=== PATIENT | male | born 1940 | race Caucasian/White ===

== ENCOUNTER 2025-07-31 11:49 | Emergency (ER) | payer OTHER, SELFPAY ==
--- OUTSIDE RECORDS SUMMARY | 2025-06-28 12:40 | XMS_ITS | Encounter Summary ---
[facility] Organization [facility] Address [address] [place] [address] Care Team Providers Care Rock Contractor Name Role Phone Uriel Foster DO Primary Care Provider [phone] Encounter Details Date Type Department Care Team (Latest Contact Info) Description 06/28/2025 1:40 PM CDT [facility] Visit [facility] [address] [place] [address] Encounter for administration of vaccine (Primary Dx) Social History Tobacco Use Types Packs/Day Years Used Date Smoking Tobacco: Never Smokeless Tobacco: Never Alcohol Use Standard Drinks/Week Comments No 0 (1 standard drink = 0.6 oz pur e alcohol) PHQ-2 Answer Date Recorded PHQ-2 Score 1 02/10/2024 AUDIT-C Answer Date Recorded Frequency of Alcohol Consumption Not on file 05/23/2025 Q2: How many drinks containi ng alcohol do you have on a typical day when you are drinking? Patient does not drink Frequency of Binge Drinking Not on file 05/08 Sex and Gender Information Value Date Recorded Sex Assigned at Male 03/12/2021 8:24 AM CDT Legal Sex Male 5:13 AM CDT Gender Identity Male 03/12/2021 8:24 AM CDT Sexual Orientation Bisexual 03/12/2021 8: 24 AM CDT Occupation Industry Job Start Date Job End Date retired Not on file Not on file Not on file documented as of this encounter Plan of Treatment Upcoming Encounters Date Type Department Care Team (Late st Contact Info) Description 03/30/2026 2:00 PM CDT Appointment [facility] Plastic Surgery and Dermatology [place] - Dermatology [address], [address] [place] [phone] Karel Garcia MD [address] [place] [phone] documented as of this encounter Visit Diagnoses Diagnosis Encounter for administration of vaccine- Primary documented in this encounter Care Teams Rock Contractor Relationship Specialty Start Date End Date Uriel Foster DO [address] [address] PCP - General Family Practice 07/08/23 documented as of this encounter
--- OUTSIDE RECORDS SUMMARY | 2025-07-11 11:00 | XMS_ITS | Encounter Summary ---
Author Organization [facility] Address [address] [place] [address] Care Team Providers Care Door Opener Name Role Phone Uriel Foster DO Primary Care Provider [phone] Encounter Details Date Type Department Care Team (Late st Contact Info) Description 07/11/2025 11:00 AM ENT SURGEON Lab Visit [facility] [address] [place] [address] Monitoring for long-term anticoagulant use Social History Tobacco Use Types Packs/Day Years [...] Info) Description 03/30/2026 2:00 PM CDT Appointment [facility] Pl[facility] Surgery and Dermatology [place] - Dermatology [address], [address] [place] [address] Karel Garcia MD [address] [place] [address] documented as of this encounter Procedures Procedure Name Priority Date/Time Associated Diagnosis Comments CREATININE / GFR Routine 07/11/2025 11:0 3 AM ENT SURGEON Monitoring for long-term anticoagulant use COMPLETE BLOOD COUNT-NO DIFF Routine 07/11/2025 11:03 AM ENT SURGEON Monitoring for long-term anticoagulant use documented in this encounter Results * (ABNORMAL) Creatinine / GFR (07/11/2025 11:03 AM ENT SURGEON) Creatinine 0.72(L) 0.73 - 1.18 mg/dL 07/11/2025 7:46 PM ENT SURGEON [facility] GFR, Estimated >60 >60 mL/min/1.7 3m2 07/11/2025 7:46 PM ENT SURGEON [facility] Blood Venipuncture / Unknown 07/11/2025 11:03 AM ENT SURGEON 07/11/2025 11:03 AM ENT SURGEON us Uriel Foster DO LAB_1 Final Result [facility] CLIA: [id number] [address] [place] [address], [facility] * (ABNORMAL) Complete Blood Count-No Diff (07/11/2025 11:03 AM ENT SURGEON) WBC 4.6 3.5 - 10.5 x10(9)/L 07/11/2025 11:08 AM ENT SURGEON [facility] RBC 3.84(L) 4.32 - 5.72 x10(12)/L 07/11/2025 11:08 AM ENT SURGEON [facility] Hemoglobin 12.3(L) 13.5 - 17.5 g/dL 07/11/2025 11:08 AM [facility] HCT 37.6(L) 38.8 - 50.0 % 07/11/2025 11:08 AM [facility] MCV 97.9 80.0 - 100.0 fL 07/11/2025 11:08 AM [facility] MCH 32.0 27.6 - 33.3 pg 07/11/2025 11:08 AM [facility] MCHC 32.7 31.5 - 35.2 g/dL 07/11/2025 11:08 AM [facility] RDW 12.4 11.9 - 15.5 % 07/11/2025 11:08 AM [facility] Platelets 191 150 - 450 x10(9)/L 07/11/2025 11:08 AM [facility] Blood Venipuncture / Unknown 07/11/2025 11:03 AM ENT SURGEON 07/11/2025 11:03 AM ENT SURGEON us Uriel Foster DO LAB_1 Final Result [facility] CLIA: [id number] [address] [place] [address] documented in this encounter Visit Diagnoses Diagnosis Monitoring for long-term anticoagulant use Encounter for long-term (current) use of anticoagulants documented in this encounter Care Teams Door Opener Relationship Specialty Start Date End Date Uriel Foster DO [address] [place] [address] PCP - General Family Practice 07/08/23 documented as of this encounter
--- OUTSIDE RECORDS SUMMARY | 2025-07-31 11:52 | XMS_ITS | Encounter Summary ---
Author Organization [email or web address] Address [address] [place] [address] Care Team Providers Care General Service Officer Name Role Phone Nigel Barraza DO Primary Care Provider [phone] Reason for Visit * Reason Comments Refill ELIQUIS 5 MG tablet [Pharmacy Med Name: ELIQUIS 5MG TABLETS] Encounter Details Date Type Department Care Team (Late st Contact Info) Description 07/28/2025 Refill [facility] [address] [place] [address] Nigel Barraza DO [address] [place], [place] [phone] Refill (ELIQUIS 5 MG tablet [Pharmacy Med Name: ELIQUIS 5MG TABLETS]) Social History Tobacco Use Types Packs/Day Years [...] on file documented as of this encounter Nursing Notes * Jeimy Chunwcomm - 07/28/2025 3:54 AM CST ELIQUIS 5 MG tablet [Pharmacy Med Name: ELIQUIS 5MG TABLETS] Medication started: 01/29/2025 Last ordered by NIGEL BARRAZA: 02/01/2025 (177 days ago) QTY: 180, Refills: 1, Sig: take 1 tablet (5 mg) by mouth two times a day. (changed but equivalent) -> Medication cannot be delegated. Last qualifying visit: 04/20/2025 (with NIGEL BARRAZA) Next scheduled visit: [facility] Embedded Refills, Reference: [id number], 07/28/2025 3:54:26 AM Milton NEWMAN: NÉSTOR Refill Centralized Services - Primary Care ([id number]) BUILDER documented in this encounter Plan of Treatment Upcoming Encounters Date Type Department Care Team (Late st Contact Info) Description 03/30/2026 2:00 PM CDT Appointment [facility] Plastic Surgery and Dermatology [place] - Dermatology [address], [address] [place] [address] Karel Garcia MD [address] [place] [address] [phone] documented as of this encounter Visit Diagnoses Diagnosis Acute pulmonary embolism without acute cor pulmonale, unspecified pulmonary embolism type (HRC) Acute deep vein thrombosis (DVT) of right popliteal vein (HRC) documented in this encounter Care Teams General Service Officer Relationship Specialty Start Date End Date Nigel Barraza DO [address] [place] [address] PCP - General Family Practice 07/08/23 documented as of this encounter
--- OUTSIDE RECORDS SUMMARY | 2025-07-31 11:52 | XMS_ITS | Encounter Summary ---
Author Organization [facility] Address [address] [place] [address] Care Team Providers Care Agricultural Education Instructor Name Role Phone Uriel Foster DO Primary Care Provider [phone] Encounter Details Date Type Department Care Team (Late st Contact Info) Description 05/03/2025 Results Follow-Up [facility] [address] [place], [place] [phone] Uriel Foster DO [address] [place], [place] [phone] Social History Tobacco Use Types Packs/Day Years [...] on file documented as of this encounter Functional Status documented as of this encounter Plan of Treatment Upcoming Encounters Date Type Department Care Team (Late st Contact Info) Description 03/30/2026 2:00 PM CDT Appointment [facility] Plastic Surgery and Dermatology [place] - Dermatology [address], [address] [place] [address] Karel Garcia MD [address] [place] [address] documented as of this encounter Visit Diagnoses Not on filedocumented in this encounter Care Teams Agricultural Education Instructor Relationship Specialty Start Date End Date Uriel Foster DO [address] [place] [address] PCP - General Family Practice 07/08/23 documented as of this encounter
--- OUTSIDE RECORDS SUMMARY | 2025-07-31 11:52 | XMS_ITS | Encounter Summary ---
Author Organization [facility] Address [address] [place] [address] Care Team Providers Care Mail Order Biller Name Role Phone Uriel Foster DO Primary Care Provider [phone] Reason for Visit * Reason Comments Anticoagulation: DOAC Encounter Details Date Type Department Care Team (Latest Contact Info) Description 07/25/2025 Direct Oral Anticoagulation [facility] [id number] [address] [place] [phone] Uriel Foster DO [address] [place] [address] Acute deep vein thrombosis (DVT) of right popliteal vein (HRC) (Primary Dx); Pulmonary embolism, unspecified chronicity, unspecified pulmonary embolism type, unspecified whether acute cor pulmonale present (HRC) Social History Tobacco Use Types Packs/Day Years [...] on file documented as of this encounter Progress Notes * Tangela Sharma RN - 07/25/2025 12:33 PM CST Uriel Foster DO ANTICOAGULATION MANAGEMENT - Patient's Anticoagulation target end date is/was 07/25/2025 . Please select an option below: OK for patient to stop their anticoagulation medication Apixaban/Eliquis . Please have patient schedule a follow-up appointment to discuss ongoing anticoagulation medication. Patient should continue on anticoagulation medication with a new specified Target End Date of (provide specific date for new Target End Date). Patient should remain on anticoagulation medication indefinitely. Please advise and route to ANTICOAGULATION [facility] and RN will update Anticoagulation Episode and the patient. NICAL SUPPORT AGENT * Uriel Foster DO - 07/25/2025 12:33 PM CST I agree with the proposed anticoagulation plan of care--option 4. Uriel Foster DO [facility] NICAL SUPPORT AGENT documented in this encounter Plan of Treatment Upcoming Encounters Date Type Department Care Team (Late st Contact Info) Description 03/30/2026 2:00 PM CDT Appointment [facility] Plastic Surgery and Dermatology [place] - Dermatology [address], [address] [place] [address] Karel Garcia MD [address] [place] [address] Scheduled Orders Name Type Priority Associated Diagnoses Orde r Schedule AST Lab Routine Acute deep vein thrombosis (DVT) of right popliteal vein (HRC) Pulmonary embolism, unspecified chronicity, unspecified pulmonary embolism type, unspecified whether acute cor pulmonale present (HRC) Expected: 12/20/2025 (Approximate), Expires: 03/20/2026 Creatinine / GFR Lab Routine Acute deep vein thrombosis (DVT) of right popliteal vein (HRC) Pulmonary embolism, unspecified chronicity, unspecified pulmonary embolism type, unspecified whether acute cor pulmonale present (HRC) Expected: 12/20/2025 (Approximate), Expires: 03/20/2026 Hemoglobin, Blood Lab Routine Acute deep vein thrombosis (DVT) of right popliteal vein (HRC) Pulmonary embolism, unspecified chronicity, unspecified pulmonary embolism type, unspecified whether acute cor pulmonale present (HRC) Expected: 12/20/2025 (Approximate), Expires: 03/20/2026 Platelets Lab Routine Acute deep vein thrombosis (DVT) of right popliteal vein (HRC) Pulmonary embolism, unspecified chronicity, unspecified pulmonary embolism type, unspecified whether acute cor pulmonale present (HRC) Expected: 12/20/2025 (Approximate), Expires: 03/20/2026 documented as of this encounter Visit Diagnoses Diagnosis Acute deep vein thrombosis (DVT) of right popliteal vein (HRC)- Primary Pulmonary embolism, unspecified chronicity, unspecified pulmonary embolism type, unspecified whether acute cor pulmonale present (HRC) documented in this encounter Care Teams Mail Order Biller Relationship Specialty Start Date End Date Uriel Foster DO [address] [place] [address] PCP - General Family Practice 07/08/23 documented as of this encounter
--- OUTSIDE RECORDS SUMMARY | 2025-07-31 11:52 | XMS_ITS | Encounter Summary ---
Author Organization [facility] Address [address] [place] [address] Care Team Providers Care Reheater Helper Name Role Phone Uriel Foster DO Primary Care Provider [phone] Encounter Details Date Type Department Care Team (Late st Contact Info) Description 07/12/2025 Results Follow-Up [facility] [address] [place], [place] [phone] Uriel Foster DO [address] [place], [place] [phone] Social History Tobacco Use Types Packs/Day Years [...] Info) Description 03/30/2026 2:00 PM CDT Appointment [facility] Plastic Surgery and Dermatology [place] - Dermatology [address], [address] [place] [address] Karel Garcia MD [address] [place] [address] documented as of this encounter Visit Diagnoses Not on filedocumented in this encounter Care Teams Reheater Helper Relationship Specialty Start Date End Date Uriel Foster DO [address] [place] [address] PCP - General Family Practice 07/08/23 documented as of this encounter
--- OUTSIDE RECORDS SUMMARY | 2025-07-31 11:53 | XMS_ITS | Encounter Summary ---
Author Organization [facility] Address [address] [place] [address] Care Team Providers Care Business Systems Manager Name Role Phone Cristian Uriel J DO Primary Care Provider [phone] Encounter Details Date Type Department Care Team (Latest Contact Info) Description 10/14/1994 Orders Only Yung Webb MD Social History Tobacco Use Types Packs/Day Years Used Date Smoking Tobacco: Never Assessed Sex and Gender Information Value Date Recorded Sex Assigned at Male 03/12/2021 8:24 AM CDT Legal Sex Male 5:13 AM CDT Gender Identity Male 03/12/2021 8:24 AM CDT Sexual Orientation Bisexual 03/12/2021 8: 24 AM CDT documented as of this encounter Plan of Treatment Upcoming Encounters Date Type Department Care Team (Late st Contact Info) Description 03/30/2026 2:00 PM CDT Appointment [facility] Plastic Surgery and Dermatology [place] - Dermatology [address], [address] [place] [address] Karel Garcia MD [address] [place] [address] [place] [address] documented as of this encounter Visit Diagnoses Not on filedocumented in this encounter Additional Health Concerns Infection Onset Date Last Indicated Resolved Time R/O COVID19 08/21/2022 08/20/2022 08/21/2022 5:58 PM 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
--- OUTSIDE RECORDS SUMMARY | 2025-07-31 11:53 | XMS_ITS | Encounter Summary ---
Author Organization [facility] Address [address] [place] [address] Care Team Providers Care Web Site Designer Name Role Phone FosterUriel DO Primary Care Provider [phone] Encounter Details Date Type Department Care Team (Latest Contact Info) Description 10/27/1994 Orders Only Stephanie Maurice Social History Tobacco Use Types Packs/Day Years [...] [facility]erm[facility] [place] - Dermatology [address], [address] [place] [address] Karel Garcia MD [address] [place] [address] [place] [address] documented as of this encounter Visit Diagnoses Not on filedocumented in this encounter Additional Health Concerns Infection Onset Date Last Indicated Resolved Time R/O COVID19 08/21/2022 08/20/2022 08/21/2022 5:58 PM 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
--- OUTSIDE RECORDS SUMMARY | 2025-07-31 11:53 | XMS_ITS | Clinical Summary ---
Author Organization [facility] Address [address] [place] [address] Care Team Providers Care Hydraulic Technician Name Role Phone Uriel Foster DO Primary Care Provider [phone] Source Comments You are receiving this document as you are listed as the primary care provider,follow-up provider, or the patient has been referred to you for consultation.This is in compliance with the Medicare andMedicaid EHR Incentive Program,which states Providers who transition their patient to another setting of careor provider of care or refers their patient to another provider of care shouldprovide summary care record for each transition of care or referral. Mfuse Allergies Active Allergy Reactions Criticality Noted Date Comments Cyclobenzaprine Hives High 11/17/2011 Pseudoephedrine Other, see comments 07/07/2023 Affects urination due to enlarged prostate Medications Cyanocobalamin (VITAMIN B-12) 1000 MCGIndications: Vitamin B 12 deficiency (HRC) Take one tablet daily 90 Tablet 1 07/12/20 24 Active FLUoxetine (PROZAC) 40 MG capsuleIndicati ons:Cognitive disorder,Depres junaid, unspecified depression type Take 1 Capsule (40 mg) by mouth daily. For depression 90 Capsule 3 11/10/19 25 026 Active carvedilol (COREG) 3.125 MG tabletIndicatio ns:Hypertension , unspecified type (HRC) TAKE 1 TABLET(3.125 MG) BY MOUTH TWICE DAILY WITH MEALS FOR BLOOD PRESSURE 180 Tablet 3 01/06/20 25 Active donepezil (ARICEPT) 10 MG tabletIndicatio ns:Mild late onset Alzheimer's dementia without behavioral disturbance, psychotic disturbance, mood disturbance, or anxiety (HRC) Take 10 mg po qam with breakfast beginning once the 5 mg course of therapy has been completed 90 Tablet 3 01/14/20 25 026 Active tamsulosin 0.4 MG CAPS capsuleIndicati ons:BPH with obstruction/low er urinary tract symptoms Take 1 Capsule (0.4 mg) by mouth daily. 90 Capsule 3 02/02/20 25 Active valsartan (DIOVAN) 80 MG tabletIndicatio ns:HTN, goal below 130/80 (HRC) Take 1 Tablet (80 mg) by mouth daily. to lower blood pressure 90 Tablet 3 02/09/20 25 026 Active potassium chloride (K-HUSEYIN) 20 MEQ packetIndicatio ns:Hypokalemia Take 20 mEq by mouth daily. 90 Each 3 04/21/20 25 Active apixaban (ELIQUIS) 5 MG tabletIndicatio ns:Acute pulmonary embolism without acute cor pulmonale, unspecified pulmonary embolism type (HRC),Acute deep vein thrombosis (DVT) of right popliteal vein (HRC) TAKE 1 TABLET(5 MG) BY MOUTH TWICE DAILY 180 Tablet 3 07/28/20 25 Active apixaban (ELIQUIS) 5 MG tabletIndicatio ns:Acute pulmonary embolism without acute cor pulmonale, unspecified pulmonary embolism type (HRC),Acute deep vein thrombosis (DVT) of right popliteal vein (HRC) Take 1 Tablet (5 mg) by mouth two times a day. 180 Tablet 1 02/02/20 25 025 Discontinued Active Problems Problem Noted Date Diagnosed Date CAREPLAN: ANTICOAGULATION DOAC 07/26/2025 Overview (07/26/2025): Indefinite use due to unprovoked DVT and PE 01/2025 with lung nodule suspicious for lung cancer. CAREPLAN: ADVANCE DIRECTIVES/CODE STATUS 025 Neuropathy 05/31/2025 Monitoring for long-term anticoagulant use 06/02 /2025 Pulmonary embolism, unspecif ied chronicity, unspecified pulmonary embolism type, unspecified whether acute cor pulmonale present 02/02/2025 Chronic rhinitis 02/02/2025 Acute pulmonary embolism without acute cor pulmo nale 02/01/2025 Overview (02/01/2025): 01/20/2025 [place] Acute deep vein thrombosis (DVT) of right poplit eal vein 02/01/2025 Overview (02/01/2025): 01/21/2025 [place] Cognitive disorder 11/09/2024 Normocytic anemia 09/15/2024 Major depressive disorder, single episode, moder ate 09/15/2024 Post-void dribbling 01/13/2024 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 Lymphedema 12/14/2023 Depression 12/14/2023 Urge incontinence 09/10/2023 Dementia 09/10/2023 Leg edema 05/01/2023 Prediabetes 05/01/2023 Major depressive disorder, single episode, mild 03/12/2023 H/O nonmelanoma skin cancer 12/30/2022 Overview (12/30/2022): -BCC right upper back status post ED&C 03/27 -SCCIS right forehead status post Mohs 09/27 -multiple other nonmelanoma skin cancers Lung nodule 10/06/2022 Overview (10/06/2022): Seen 09/29 Due for follow up 3-6 mo PVC (premature ventricular contraction) 09/23/19 23 Coronary artery disease invo lving cabazon coronary artery of cabazon heart 03/28/2021 Overview (03/29/2021): Added automatically from request for surgery [id number] Sinus bradycardia 04/10/2019 Overview (05/19/2019): updated 05/19/2019. At least 2 episodes of sudden-onset weakness; unclear if related to HR. Saw cardiology in 05/2019 and declined further testing. Neuropathy of both feet 03/02/2019 Paroxysmal supraventricular tachycardia 03/02/20 19 Overview (03/02/2019): updated 03/02/2019. Required adenosine in 2013. HTN, goal below 140/90 11/24/2018 Cold hands and feet without peripheral vascular disease 11/24/2018 Osteoarthritis, hip, bilateral 02/16/2014 Venous (peripheral) insufficiency 03/21/2013 BPH with obstruction/lower urinary tract symptom s 11/17/2011 Resolved Problems Problem Noted Date Diagnosed Date Resolved Date Varicose veins of leg with pain 03/31/2013 04/10/2019 Dependent edema 06/30/2012 03/01/2019 Pubic bone pain 11/17/2011 04/30/2021 Encounters Date Type Department Care Team Description 07/28/2025 Refill [facility] [address] [place] [address] Uriel Foster DO Refill (ELIQUIS 5 MG tablet [Pharmacy Med Name: ELIQUIS 5MG TABLETS]) 07/25/2025 Direct Oral Anticoagulation [facility] [id number] [place] [address] [phone] Uriel Foster DO Acute deep vein thrombosis (DVT) of right popliteal vein (HRC) (Primary Dx); Pulmonary embolism, unspecified chronicity, unspecified pulmonary embolism type, unspecified whether acute cor pulmonale present (HRC) 07/12/2025 Results Follow-Up [facility] [place] [address] [place] [address] Uriel Foster DO 07/11/2025 11:00 AM PRODUCTION SUPPORT SPECIALIST Lab Visit [address] [address] Monitoring for long-term anticoagulant use 07/11/2025 Telephone [facility] [address] [place] [phone] Uriel Foster DO TEST,PATIENT REQUESTING (Expected date change) 06/28/2025 1:40 PM CDT Nursing Visit [facility] [address] [place] [address] Encounter for administration of vaccine (Primary Dx) 06/04/2025 Notes/Orders [address] [place] [address] Uriel Foster DO Alzheimer's disease, unspecified (CODE) (HRC) (Primary Dx); Dementia in other diseases classified elsewhere, unspecified severity, without behavioral disturbance, psychotic disturbance, mood disturbance, and anxiety (HRC); Polyneuropathy, unspecified; Other specified anxiety disorders (HRC); Athscl heart disease of cabazon coronary artery w/o ang pctrs (HRC) 06/02/2025 Telephone [place] [address] [place] [address] Uriel Foster DO ORDERS 05/31/2025 11:15 AM CDT Office Visit Neurology at [address] [address] Rodrigo Yo MD Neuropathy (Primary Dx) 05/23/2025 10:00 AM CDT Phone Visit [facility] [address] [place] [address] Razia Bunn, PharmD Polypharmacy (Primary Dx) 05/03/2025 Results Follow-Up [place] [address] [address] [place] [address] Uriel Foster DO 05/02/2025 1:00 PM CDT Lab Visit [facility] [address] [place] [address] Hypokalemia from Last 3 Months Immunizations Immunization Administration Dates Next Due Flu Vac (3+ yrs) 08/09/2009, 8,07/21/2007,2005,07/11/2005,06/28/2003,06/06/2003,1 ,07/27/2000,07/10/1999 H1n1 Miv Sanofi 3+ Yr (Injected) 09/06/2009 Influenza IIV3 (Trivalent) F philip Highdose, 65+ Yrs ([id number]) 08/18/2024,05/27/2024,06/24/2019,2017,07/09/2017,05/15/2016,05/25/2015,0 06/05/2014,05/27/2013,05/12/2012, 011,06/24/2010 Influenza IIV4 (Quadrivalent ) Fluad, 65+ Yrs 05/18/2021,06/04/2020 Influenza IIV4 (Quadrivalent ) Fluzone, 65+ Yrs 05/17/2023,06/30/2022 Influenza aIIV3 65+ Years (Fluad) 06/28/2025 Moderna COVID-19 12+ (Spikevax) 08/18/2024,05/27,07/03/2023 PCV13 (Prevnar) 11/24/2018 PPSV23 (Pneumovax) 06/19/2021 Pfizer Bivalent 12+ 05/01/2023,06/30/2022 Pfizer COVID-19 12+ (Comirnaty) 06/28/2025 Pfizer Monovalent 12+ 12/25/2021 Pfizer Monovalent 12+ Purple Top 06/21/2021,10/09,10/08/2020 RSV Arexvy 05/17/2023 TB Skin Test - Inpt (PPD) 04/07/2021(), Td 02/24/1995 Td (7+ yrs) 12/22/2005 Tdap 09/14/2018 Varicella 07/18/1997(Deferred: Immune by Maximo hogan) Zoster (Zostavax) 04/23/2011 Zoster RZV (Shingrix) 06/28/2020,11/24/2018 Family History Medical History Relation Name Comments Cataract Mother Macular Degeneration Mother in her 90s Glaucoma Negative Family History Relation Name Status Comments Mother Social History Tobacco Use Types Packs/Day Years Used Date Smoking Tobacco: Never Smokeless Tobacco: Never Tobacco Cessation:Counseling Given: No Alcohol Use Standard Drinks/Week Comments No 0 [...] file Not on file Not on file Last Filed Vital Signs Vital Sign Reading Time Taken Comments Blood Pressure 124/53 04/20/2025 1:48 PM CDT Pulse 53 04/20/2025 1:48 PM CDT Temperature 36.8 C (98.3 F) 03/06/2025 6:56 AM CDT Respiratory Rate 18 04/14/2025 2:01 PM CDT Oxygen Saturation 100% 04/14/2025 2:01 PM CDT Inhaled Oxygen Concentration - - Weight 88 kg (194 lb) 04/20/2025 1:06 PM CDT Height 172.7 cm (5' 8) 03/06/2025 6:51 AM CDT Body Mass Index 29.5 03/06/2025 6:51 AM CDT Plan of Treatment Upcoming Encounters Date Type Department Care Team (Late st Contact Info) Description 03/30/2026 2:00 PM CDT Appointment [facility] [place] - Dermatology [address], [address] [place] [address] Karel Garcia MD [address] [place] [address] Health Maintenance Due Date Last Done Comments Medicare Annual Wellness Visit 09/14/2025 09/14/2024, 09/09/2023, 09/23/2022, Additional history exists COVID-19 Vaccine ( season) 2025 06/28/2025, 08/18/2024, 05/27/2024, Additional history exists Prediabetes: HGBA1C 04/20/2026 04/20/2025, 03/30/2024, 05/01/2023, Additional history exists MTM Targeted 05/23/2026 05/23/2025, 05/23/2025 DTaP/Tdap/Td Vaccine (2 - Tdap) 09/14/2028 09/14/2018, 12/22/2005, 02/24/1995 Zoster/Shingles Vaccine Completed 06/28/20, 11/24/2018, 04/23/2011 Pneumococcal Vaccine 50+ Yrs Completed 06/19/2021, 11/24/2018 RSV Vaccine Completed 05/17/2023 Influenza Vaccine Completed 06/28/2025, , 05/27/2024, Additional history exists HepA Vaccine Aged Out No longer eligi ble based on patient's age to complete this topic HepB Vaccine Aged Out No longer eligi ble based on patient's age to complete this topic Hib Vaccine Aged Out No longer eligi ble based on patient's age to complete this topic MCV4 Vaccine Aged Out No longer eligi ble based on patient's age to complete this topic Meningococcal B Vaccine Aged Out No l onger eligible based on patient's age to complete this topic Procedures Procedure Name Priority Date/Time Associated Diagnosis Comments CREATININE / GFR Routine 07/11/2025 11:0 3 AM PRODUCTION SUPPORT SPECIALIST Monitoring for long-term anticoagulant use COMPLETE BLOOD COUNT-NO DIFF Routine 07/11/2025 11:03 AM PRODUCTION SUPPORT SPECIALIST Monitoring for long-term anticoagulant use POTASSIUM Routine 05/02/2025 12:48 PM CDT Hypokalemia HGB A1C Routine 04/20/2025 1:56 PM CDT Prediabetes from Last 3 Months or Most Recently Relevant to Health Maintenance Results * (ABNORMAL) Creatinine / GFR (07/11/2025 11:03 AM PRODUCTION SUPPORT SPECIALIST) Creatinine 0.72(L) 0.73 - 1.18 mg/dL 07/11/2025 7:46 PM PRODUCTION SUPPORT SPECIALIST [facility] GFR, Estimated >60 >60 mL/min/1.7 3m2 07/11/2025 7:46 PM [facility] Blood Venipuncture / Unknown 07/11/2025 11:03 AM PRODUCTION SUPPORT SPECIALIST 07/11/2025 11:03 AM PRODUCTION SUPPORT SPECIALIST us Uriel Foster DO LAB_1 Final Result Performing Organization Address City/[facility]/ZIP Co de Phone Number [facility] CLIA: [id number] [place] [address] * (ABNORMAL) Complete Blood Count-No Diff (07/11/2025 11:03 AM PRODUCTION SUPPORT SPECIALIST) [facility] WBC 4.6 3.5 - 10.5 x10(9)/L 07/11/2025 11:08 AM [facility] RBC 3.84(L) 4.32 - 5.72 x10(12)/L 07/11/2025 11:08 AM [facility] Hemoglobin 12.3(L) 13.5 - 17.5 g/dL 07/11/2025 11:08 AM [facility] HCT 37.6(L) 38.8 - 50.0 % 07/11/2025 11:08 AM [facility] MCV 97.9 80.0 - 100.0 fL 07/11/2025 11:08 AM [facility] MCH 32.0 27.6 - 33.3 pg 07/11/2025 11:08 AM [facility] MCHC 32.7 31.5 - 35.2 g/dL 07/11/2025 11:08 AM [facility] RDW 12.4 11.9 - 15.5 % 07/11/2025 11:08 AM [facility] Platelets 191 150 - 450 x10(9)/L 07/11/2025 11:08 AM [facility] Blood Venipuncture / Unknown 07/11/2025 11:03 AM PRODUCTION SUPPORT SPECIALIST 07/11/2025 11:03 AM PRODUCTION SUPPORT SPECIALIST us Uriel Foster DO LAB_1 Final Result Performing Organization Address City/[facility]/ZIP Co de Phone Number [facility] CLIA: [id number] [place] [address] * Potassium (05/02/2025 12:48 PM CDT) Potassium 4.1 3.5 - 5.1 mmol/L 05/02/2025 6:15 PM CDT [facility] Blood Venipuncture / Unknown 05/02/2025 12:48 PM CDT 05/02/2025 12:48 PM CDT us Uriel Foster DO LAB_1 Final Result [facility] CLIA: [id number] [address] [place] [address] * (ABNORMAL) Hgb A1C (04/20/2025 1:56 PM CDT) Hemoglobin A1C 5.7(H) <=5.6 % 04/20/2025 7:03 PM CDT [facility] Estimated Average Glucose (Calc) 117 < 117 mg/dL 04/20/2025 7:03 PM CDT [facility] Comment:Estimated average gl ucose (eAG) converts A1c into glucose units (mg/dL) and estimates average glucose over the past approximately 3 months. The eAG reference interval (<117 mg/dL) corresponds to an A1c of <5.7%. Blood Venipuncture / Unknown 04/20/2025 1:56 PM CDT 04/20/2025 1:56 PM CDT Narrative [facility] - 04/20/2025 7:03 PM CDT For patients not previously diagnosed with diabetes: 5.7-6.4%: Increased risk for diabetes 6.5% and greater: Diagnostic for diabetes For patients diagnosed with diabetes: <8.0%: Goal of therapy for ages 18-75 Clinicians may recommend a higher or lower goal for specific individuals. us Uriel Foster DO LAB_1 Final Result [facility] CLIA: [id number] [id number] [place] [address] from Last 3 Months or Most Recently Relevant to Health Maintenance Insurance HP MEDICARE ADVANTAGE HP MEDICARE ADVANTAGE HP MEDICARE ADVANTAGE MEDICARE ADVANTAGE Advance Directives Documents on File Type Date Recorded Patient Bottom Precipitator Operator Expl anation POLST 06/08/2025 06/08/2025 HEALTHCARE DIRECTIVE 05/02/2021 CV CODE STATUS 04/05/2021 * Full Code (Latest Code Status on File) Date Activated Date Inactivated Comments 04/05/2021 1:12 PM 04/17/2021 12:51 PM * Full Code Date Activated Date Inactivated Comments 04/01/2021 5:20 AM 04/05/2021 12:31 PM * Full Code Date Activated Date Inactivated Comments 03/28/2021 2:09 PM 04/01/2021 5:20 AM * Full Code Date Activated Date Inactivated Comments 08/12/2009 3:54 AM 08/12/2009 3:49 PM Care Teams Hydraulic Technician Relationship Specialty Start Date End Date Uriel Foster DO [address] [place] [address] PCP - General Family Practice 07/08/23
--- OUTSIDE RECORDS SUMMARY | 2025-07-31 11:53 | XMS_ITS | Encounter Summary ---
Author Organization [facility] Address [address] [place] [address] Care Team Providers Care Rice Cleaning Machine Tender Name Role Phone Cristian Uriel Josh APK Primary Care Provider [phone] Encounter Details Date Type Department Care Team (Latest Contact Info) Description 06/29/1997 Orders Only Mark Zacarias MD [address] [place], [place] [phone] Social History Tobacco Use Types Packs/Day Years [...] Info) Description 03/30/2026 2:00 PM CDT Appointment [facility] [place] - Dermatology [facility] Radio [facility], [address] [place] [address] Karel Garcia MD [address] [place] [address] [place] [address] documented as of this encounter Visit Diagnoses Not on filedocumented in this encounter Additional Health Concerns Infection Onset Date Last Indicated Resolved Time R/O COVID19 08/21/2022 08/20/2022 08/21/2022 5:58 PM ADMISSIONS OFFICER R/O COVID19 07/09/2023 07/09/2023 07/09/2023 8:53 PM CDT R/O COVID19 12/29/2023 12/29/2023 12/29/2023 7:26 PM CDT documented as of this encounter Care Teams Rice Cleaning Machine Tender Relationship Specialty Start Date End Date Uriel Foster DO [address] [address] PCP - General Family Practice 07/08/23 documented as of this encounter
--- OUTSIDE RECORDS SUMMARY | 2025-07-31 11:53 | XMS_ITS | Encounter Summary ---
Author Organization Counts include 234 beds at the [facility] Address [address] [place] [address] Care Team Providers Care Health Practice Manager Name Role Phone Uriel Foster DO Primary Care Provider [phone] Encounter Details Date Type Department Care Team (Late Contact Info) Description 11/24/2018 Correspondence [facility] [address] [facility] [place] [address] Uriel Foster DO [address] [place] [address] VACCINE PAW Social History Tobacco Use Types Packs/Day Years Used Date Smoking Tobacco: Never Smokeless Tobacco: Never Alcohol Use Standard Drinks/Week Comments No 0 (1 standard drink = 0.6 oz pur e alcohol) Sex and Gender Information Value Date Recorded [...] Encounters Date Type Department Care Team (Late Contact Info) Description 03/30/2026 2:00 PM CDT Appointment Counts include 234 beds at the [facility] Plastic Surgery and Dermatology [place] - Dermatology [address], [address] [place] [address] Karel Garcia MD [address] [place] [address] documented as of this encounter Visit Diagnoses Not on filedocumented in this encounter Additional Health Concerns Infection Onset Date Last Indicated Resolved Time R/O COVID19 08/21/2022 08/20/2022 08/21/2022 5:58 PM FRONT END MANAGER R/O COVID19 07/09/2023 07/09/2023 07/09/2023 8:53 PM CDT R/O COVID19 12/29/2023 12/29/2023 12/29/2023 7:26 PM CDT documented as of this encounter Care Teams Health Practice Manager Relationship Specialty Start Date End Date Uriel Foster DO [address] [place] [address] PCP - General Family Practice 07/08/23 documented as of this encounter
--- OUTSIDE RECORDS SUMMARY | 2025-07-31 11:53 | XMS_ITS | Encounter Summary ---
Author Organization [facility] Address [address] [place] [address] Care Team Providers Care Deputy Controller Name Role Phone Uriel Foster DO Primary Care Provider [phone] Encounter Details Date Type Department Care Team (Late Contact Info) Description 05/11/2018 Consent for Procedure/Treatment [facility] [address] [facility] [place] [address] Christian Reddy MD [address] [place] [phone] CON[place] Social History Tobacco Use Types Packs/Day Years [...] Info) Description 03/30/2026 2:00 PM CDT Appointment [facility] Plastic Surgery and Dermatology [facility] Dermatology [address], [address] [place] [address] Karel Garcia MD [address] [place] [address] documented as of this encounter Visit Diagnoses Not on filedocumented in this encounter Additional Health Concerns Infection Onset Date Last Indicated Resolved Time R/O COVID19 08/21/2022 08/20/2022 08/21/2022 5:58 PM AIRPORT DUTY MANAGER R/O COVID19 07/09/2023 07/09/2023 07/09/2023 8:53 PM CDT R/O COVID19 12/29/2023 12/29/2023 12/29/2023 7:26 PM CDT documented as of this encounter Care Teams Deputy Controller Relationship Specialty Start Date End Date Uriel Foster DO [address] [address] PCP - General Family Practice 07/08/23 documented as of this encounter
--- OUTSIDE RECORDS SUMMARY | 2025-07-31 11:53 | XMS_ITS | Encounter Summary ---
Author Organization [facility] Address [address] [place] [address] Care Team Providers Care Protective Clothing Issuer Name Role Phone Uriel Foster DO Primary Care Provider [phone] Reason for Visit * Reason Comments TEST,PATIENT REQUESTING Expected date nic canchola Encounter Details Date Type Department Care Team (Late st Contact Info) Description 07/11/2025 Telephone [facility] [address] [place] [address] Uriel Foster DO [address] [place] [address] TEST,PATIENT REQUESTING (Expected date change) Social History Tobacco Use Types Packs/Day Years [...] as of this encounter Nursing Notes * Caty Crabtree RN - 07/11/2025 10:44 AM CST Expected date updated per request. Caty Crabtree RN [facility] 07/11/2025 10:44 AM LIFT OPERATOR * Viki Farley - 07/11/2025 10:40 AM CST Patient is scheduled for a Lab Only Visit on 07/11 the Expected Date is 07/25. Please modify Expected Date or notify patient that lab work is not needed yet. LIFT OPERATOR documented in this encounter Plan of Treatment Upcoming Encounters Date Type Department Care Team (Late st Contact Info) Description 03/30/2026 2:00 PM CDT [facility]ointment [facility] Dermatology [place] - Dermatology [address], [address] [place] [address] Karel Garcia MD [address] [place] [address] documented as of this encounter Visit Diagnoses Not on filedocumented in this encounter Care Teams Protective Clothing Issuer Relationship Specialty Start Date End Date Uriel Foster DO [address] [place] [address] PCP - General Family Practice 07/08/23 documented as of this encounter
--- OUTSIDE RECORDS SUMMARY | 2025-07-31 11:53 | XMS_ITS | Encounter Summary ---
Author Organization [facility] Address [address] [place] [address] Care Team Providers Care Csw Name Role Phone Cristian Uriel Josh PAK Primary Care Provider [phone] Encounter Details Date Type Department Care Team (Latest Contact Info) Description 05/23/1997 Orders Only Mark Zacarias MD [address] [place], [place] [phone] Social History Tobacco Use Types Packs/Day Years [...] 03/30/2026 2:00 PM CDT Appointment [facility] Plastic Surgery and Dermatology [place] - Dermatology [facility] Radio [facility], [address] [place] [address] Karel Garcia MD [address] [place] [address] [place] [address] documented as of this encounter Visit Diagnoses Not on filedocumented in this encounter Additional Health Concerns Infection Onset Date Last Indicated Resolved Time R/O COVID19 08/21/2022 08/20/2022 08/21/2022 5:58 PM WATERPROOF COATING MACHINE TENDER R/O COVID19 07/09/2023 07/09/2023 07/09/2023 8:53 PM CDT R/O COVID19 12/29/2023 12/29/2023 12/29/2023 7:26 PM CDT documented as of this encounter Care Teams Csw Relationship Specialty Start Date End Date Uriel Foster DO [address] [place] [address] PCP - General Family Practice 07/08/23 documented as of this encounter
--- OUTSIDE RECORDS SUMMARY | 2025-07-31 11:53 | XMS_ITS | Encounter Summary ---
[facility] Organization [facility] Address [address] [place] [address] Care Team Providers Care Network Planner Name Role Phone FosterUriel DO Primary Care Provider [phone] Encounter Details Date Type Department Care Team (Late st Contact Info) Description 03/24/2012 Consent for Procedure/Treatme nt [facility] [address] [place] [address] Christian Reddy MD [address] [place] [address] CONSENT FOR PROCEDURE Social History Tobacco Use Types Packs/Day Years Used Date Smoking Tobacco: Never Smokeless Tobacco: Never Alcohol Use Standard Drinks/Week Comments Not Asked 0 (1 standard drink = 0.6 oz [...] as of this encounter Progress Notes * Christian Reddy MD - 03/24/2012 12:00 AM CDT documented in this encounter Plan of Treatment Upcoming Encounters Date Type Department Care Team (Late st Contact Info) Description 03/30/2026 2:00 PM CDT Appointment [facility], [facility] D[facility] [place] [facility] [address], [address] [place] [address] Karel Garcia MD [address] [place] [address] documented as of this encounter Visit Diagnoses Not on filedocumented in this encounter Additional Health Concerns Infection Onset Date Last Indicated Resolved Time R/O COVID19 08/21/2022 08/20/2022 08/21/2022 5:58 PM PRINTING EQUIPMENT MECHANIC APPRENTICE R/O COVID19 07/09/2023 07/09/2023 07/09/2023 8:53 PM CDT R/O COVID19 12/29/2023 12/29/2023 12/29/2023 7:26 PM CDT documented as of this encounter Care Teams Network Planner Relationship Specialty Start Date End Date Uriel Foster DO [address] [address] PCP - General Family Practice 07/08/23 documented as of this encounter
--- OUTSIDE RECORDS SUMMARY | 2025-07-31 11:53 | XMS_ITS | Encounter Summary ---
Author Organization [facility] Address [address] [place] [address] Care Team Providers Care Psychiatric Nursing Assistant Name Role Phone FosterUriel DO Primary Care Provider [phone] Encounter Details Date Type Department Care Team (Latest Contact Info) Description 06/12/1997 Orders Only Stephanie Maurice Social History Tobacco [...] 03/30/2026 2:00 PM CDT Appointment [facility] Pl[facility] Surgery [facility] D[facility] [place] [facility]ology [address], [address] [place] [address] Karel Garcia MD [address] [place] [address] [place] [address] documented as of this encounter Visit Diagnoses Not on filedocumented in this encounter Additional Health Concerns Infection Onset Date Last Indicated Resolved Time R/O COVID19 08/21/2022 08/20/2022 08/21/2022 5:58 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
--- OUTSIDE RECORDS SUMMARY | 2025-07-31 11:53 | XMS_ITS | Encounter Summary ---
[facility] Organization [facility] Address [address] [place] [address] Care Team Providers Care Assault Amphibious Vehicle Officer Name Role Phone Cristian Uriel Josh PAK Primary Care Provider [phone] Encounter Details Date Type Department Care Team (Latest Contact Info) Description 09/14/2018 Correspondence None No Primary/Referring, Phy VACCINE PAW Social History Tobacco Use Types [...] [facility] Pl[facility] and D[facility]ology [place] - D[facility] [employer] [facility] [address] [place] [address] Karel Garcia MD [address] [place] [address] [place] [address] documented as of this encounter Visit Diagnoses Not on filedocumented in this encounter Additional Health Concerns Infection Onset Date Last Indicated Resolved Time R/O COVID19 08/21/2022 08/20/2022 08/21/2022 5:58 PM 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
--- OUTSIDE RECORDS SUMMARY | 2025-07-31 11:53 | XMS_ITS | Encounter Summary ---
Author Organization [facility] Address [address] [place] [address] Care Team Providers Care Cementer Helper Name Role Phone Cristian Uriel Josh PAK Primary Care Provider [phone] Encounter Details Date Type Department Care Team (Latest Contact Info) Description 02/24/1995 Orders Only Mark Zacarias MD [address] [place], [place] [address] Social History Tobacco Use Types Packs/Day Years [...] [facility] [place] - D[facility]ology [facility] [address] [facility], [address] [place] [address] Karel Garcia MD [address] [place] [address] [place] [address] documented as of this encounter Visit Diagnoses Not on filedocumented in this encounter Additional Health Concerns Infection Onset Date Last Indicated Resolved Time R/O COVID19 08/21/2022 08/20/2022 08/21/2022 5:58 PM 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
--- OUTSIDE RECORDS SUMMARY | 2025-07-31 11:53 | XMS_ITS | Clinical Summary ---
Author Organization [facility] Address [address] [place] [address]. [place] [address] Care Team Providers Care Managing Jeweler Name Role Phone [facility] Care Pr ovider Tung Cespedes DO Unavailable Allergies Active Allergy Reactions Criticality Noted Date Comments Aspirin Other (See Comments) 05/03/2014 Hx of nasal polys per report, said he could take 81 mg if needed Cyclobenzaprine Hives High 11/17/2011 Nsaids Other (See Comments) 05/03/2014 Ulcer Pseudoephedrine Other (See Comments) 05/24/2007 Affects urination due to enlarged prostate Medications acetaminophen (TYLENOL) 500 MG tablet Take 500-1,000 mg by mouth every 6 hours as needed for mild pain Active carvedilol (COREG) 3.125 MG tablet Take 3.125 mg by mouth 2 times daily (with meals). 5 Active donepezil (ARICEPT) 5 MG tablet Take 5 mg by mouth daily (with breakfast). 5 Active FLUoxetine (PROZAC) 40 MG capsule Take 40 mg by mouth every morning. 5 11/10/19 26 Active valsartan-hydrochl orothiazide (DIOVAN HCT) 80-12.5 MG tablet Take 1 tablet by mouth every morning. Active apixaban ANTICOAGULANT (ELIQUIS ANTICOAGULANT) 5 MG tabletIndications: Other acute pulmonary embolism without acute cor pulmonale (H) Take 1 tablet (5 mg) by mouth 2 times daily. Start at 8 am on 01/29 60 tablet 1 5 Active tamsulosin (FLOMAX) 0.4 MG capsuleIndications :Other acute pulmonary embolism without acute cor pulmonale (H) Take 1 capsule (0.4 mg) by mouth daily. 30 capsule 1 5 Active fluticasone (FLONASE) 50 MCG/ACT nasal spray 2 sprays. Active potassium chloride ER (K-TAB) 20 MEQ CR tablet Take 1 tablet (20 mEq) by mouth daily. 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 Lymphedema 12/14/2023 Depression 12/14/2023 Cognitive disorder 09/10/2023 Urge incontinence 09/10/2023 Leg edema 05/01/2023 Prediabetes 05/01/2023 Major depressive disorder, single episode, mild 03/12/2023 H/O nonmelanoma skin cancer 12/30/2022 Overview (02/03/2025): -BCC right upper back status post ED&C 03/27 -SCCIS right forehead status post Mohs 09/27 -multiple other nonmelanoma skin cancers Lung nodule 10/06/2022 Overview (02/03/2025): Seen 09/29 Due for follow up 3-6 mo Seen 09/29 Due for follow up 3-6 mo PVC (premature ventricular contraction) 09/23/19 Current moderate episode of major depressive disorder without prior episode 02/21/2022 Coronary artery disease invo lving [place] coronary artery of [place] heart 03/28/2021 Overview (09/21/2022): Added automatically from request for surgery [id number] Sinus bradycardia 04/10/2019 Overview (09/21/2022): updated 05/19/2019. At least 2 episodes of sudden-onset weakness; unclear if related to HR. Saw cardiology in 05/2019 and declined further testing. Neuropathy of both feet 03/02/2019 Paroxysmal supraventricular tachycardia 03/02/20 19 Overview (09/21/2022): updated 03/02/2019. Required adenosine in 2013. Cold hands and feet without peripheral vascular disease 11/24/2018 HTN, goal below 140/90 11/24/2018 Osteoarthritis, hip, bilateral 02/16/2014 Venous (peripheral) insufficiency 03/21/2013 BPH with obstruction/lower urinary tract symptom s 11/17/2011 Immunizations Immunization Administration Dates Next Due Influenza (H1N1) 09/06/2009 Influenza (High Dose) Trival ent,PF (Fluzone) 08/18/2024,05/27/2024,06/24/2019,2017,07/09/2017,05/15/2016,05/25/2015,0 06/05/2014,05/27/2013,05/12/2012, 011,06/24/2010 Influenza (IIV3) PF 08/09/2009, 8,07/21/2007,2005,07/11/2005,06/28/2003,06/06/2003,1 ,07/27/2000,07/10/1999 Influenza Vaccine 65+ (FLUAD) 05/18/2021, 020 Influenza Vaccine 65+ (Fluzone HD) 05/17/2023, [place] Tuberculin Skin Test 04/05/2021 Pneumo Conj 13-V (2010&after) 11/24/2018 Pneumococcal 23 valent 06/19/2021 RSV Vaccine (Arexvy) 05/17/2023 TD,PF 7+ (Tenivac) 12/22/2005 TDAP (Adacel,Boostrix) 09/14/2018 Td (Adult), Adsorbed 02/24/1995 Zoster recombinant adjuvante d (Shingrix) 06/28/2020,11/24/2018 Zoster vaccine, live 04/23/2011 Social History Tobacco Use Types Packs/Day Years Used Date Smoking Tobacco: Unknown Adolescent Education Answer Date Record ed Getting School Help Needed Not on file 05/30 Food Insecurity Answer Date Recorded Within the past 12 months, d id you worry that your food would run out before you got money to buy more? No 01/20/2025 Within the past 12 months, d id the food you bought just not last and you didn t have money to get more? No 01/20/2025 Housing Stability Answer Date Recorded Do you have housing? (Housin g is defined as stable permanent housing and does not include staying outside in a car, in a tent, in an abandoned building, in an overnight senior care, or couch-surfing.) No 01/20/2025 Are you worried about losing your housing? No 01/20/2025 Financial Resource Strain Answer Date R ecorded Within the past 12 months, h ave you or your family members you live with been unable to get utilities (heat, electricity) when it was really needed? No 01/20/2025 Transportation Needs Answer Date Record ed Within the past 12 months, h as lack of transportation kept you from medical appointments, getting your medicines, non-medical meetings or appointments, work, or from getting things that you need? No 01/20/2025 Interpersonal Safety Answer Date Record ed Do you feel physically and e motionally safe where you currently live? Yes 01/20/2025 Within the past 12 months, h ave you been hit, slapped, kicked or otherwise physically hurt by someone? No 01/20/2025 Within the past 12 months, h ave you been humiliated or emotionally abused in other ways by your partner or ex-partner? No 01/20/2025 Sex and Gender Information Value Date Recorded Sex Assigned at Not on file Legal Sex Male 5:46 PM CDT Gender Identity Not on file Sexual Orientation Not on file Last Filed Vital Signs Vital Sign Reading Time Taken Comments Blood Pressure 156/82 04/14/2025 7:04 PM CDT Pulse 46 04/14/2025 7:04 PM CDT Temperature 36.8 C (98.3 F) 04/14/2025 3:15 PM CDT Respiratory Rate 16 04/14/2025 7:04 PM CDT Oxygen Saturation 98% 04/14/2025 7:04 PM CDT Inhaled Oxygen Concentration - - Weight 88 kg (194 lb) 04/14/2025 3:18 PM CDT Height 172.7 cm (5' 8) 04/14/2025 3:18 PM CDT Body Mass Index 29.5 04/14/2025 3:18 PM CDT Plan of Treatment Health Maintenance Due Date Last Done Comments ADVANCE CARE PLANNING 1938 ANNUAL REVIEW OF HM ORDERS 1938 DEPRESSION ACTION PLAN 1938 PHQ-9 1938 FALL RISK ASSESSMENT 2003 MEDICARE ANNUAL WELLNESS VISIT 06/28/2004 06/28/2003, 01/29/1999 COVID-19 VACCINE ( season) 2025 08/18/2024, 05/27/2024, 07/03/2023, Additional history exists INFLUENZA VACCINE (#1) 2025 , 05/27/2024, 05/17/2023, Additional history exists BMP 04/14/2026 04/14/2025, 01/05, 01/21/2025, Additional history exists DTAP/TDAP/TD VACCINE (2 - Td or Tdap) 09/14/2028 09/14/2018, 12/22/2005, 02/24/1995 ZOSTER VACCINE Completed 06/28/2020, 11/06, 04/23/2011 PNEUMOCOCCAL VACCINE 50+ YEARS Completed 06/19/2021, 11/24/2018 RSV VACCINE Completed 05/17/2023 HPV VACCINE (No Doses Required) Completed MENINGITIS VACCINE Aged Out No longer eligible based on patient's age to complete this topic Procedures Procedure Name Priority Date/Time Associated Diagnosis Comments BASIC METABOLIC PANEL (LIMITED OCCURRENCES) STAT 04/14/2025 3:32 PM CDT from Last 3 Months or Most Recently Relevant to Health Maintenance Results * (ABNORMAL) Basic Metabolic Panel (Limited Occurrences) (04/14/2025 3:32 PM CDT) Sodium 140 135 - 145 mmol/L 04/14/2025 3:58 PM CDT [facility] Potassium 2.8(L) 3.4 - 5.3 mmol/L 04/14/2025 3:58 PM CDT [facility] Chloride 104 98 - 107 mmol/L 04/14/2025 3:58 PM CDT [facility] Carbon Dioxide (CO2) 25 22 - 29 mmol/L 04/14/2025 3:58 PM CDT [facility] Anion Gap 11 7 - 15 mmol/L 04/14/2025 3:58 PM CDT [facility] Urea Nitrogen 13.7 8.0 - 23.0 mg/dL 04/14/2025 3:58 PM CDT [facility] Creatinine 0.66(L) 0.67 - 1.17 mg/dL 04/14/2025 3:58 PM CDT [facility] GFR Estimate >90 >60 mL/min/1.7 3m2 04/14/2025 3:58 PM CDT [facility] Comment:eGFR calculated us2020 CKD-EPI equation. Calcium 8.5(L) 8.8 - 10.4 mg/dL 04/14/2025 3:58 PM CDT [facility] Glucose 110(H) 70 - 99 mg/dL 04/14/2025 3:58 PM CDT [facility] Blood STRUCTURE OF LEFT HAND / Unknown Venipuncture / Unknown 04/14/2025 3:32 PM CDT 04/14/2025 3:38 PM CDT us Dangelo Sanchez MD LAB - BLOOD ORDERABLES Final Result [facility] [address] [place] [address], [place] from Last 3 Months or Most Recently Relevant to Health Maintenance Insurance [address] [place] [address] [facility] [address] [place] [address] [facility] Advance Directives For more information, please contact: [phone] * Full Code (Latest Code Status on File) Date Activated Date Inactivated Comments 01/20/2025 9:49 PM 01/22/2025 8:40 PM All basic an d advanced life-sustaining interventions are performed as appropriate Question Answer Comments Code status determined by: Discussion with patie nt/ legal decision maker Care Teams Managing Jeweler Relationship Specialty Start Date End Date [facility] [address] [place] [address] PCP - General 01/20/25 Tung Cespedes DO [address] [place] [address], [facility] [address] [place], [place] [address] Audiovisual Librarian Pulmonary Disease 02/02/25
--- OUTSIDE RECORDS SUMMARY | 2025-07-31 11:53 | XMS_ITS | Encounter Summary ---
[facility] Address [address] [address] Care Team Providers Care Ship Worker Name Role Phone Uriel Foster DO Primary Care Provider [phone] Reason for Referral * Procedure/Equipment (Routine) - Incomplete Specialty Diagnoses / Procedures Referred By Mayte t Referred To Contact Diagnoses Lung nodule Procedures CT Bx Lung Uriel Foster DO [address] [place] [address] Phone: tel: fax: Referral ID Status Reason Start Date Expiration Date V isits Requested Visits Authorized [id number] Incomplete 02/16/2025 05/18/2026 1 1 Reason for Visit * Reason Comments Urgent Appt Request Encounter Details Date Type Department Care Team (Late st Contact Info) Description 02/14/2025 Telephone [facility] [address] [place] [id number] Unassigned, Provider [address] [place] [address] Urgent Appt Request Social History Tobacco Use Types Packs/Day Years [...] Functional Status documented as of this encounter Nursing Notes * Nikki Coyne - 02/20/2025 9:17 AM CDT Call to pt's daughter Love regarding the appt w/ Dr. Anthony will be considered a pre op for the CT guided biopsy. Love asked about the pt holding his Eliquis. Abrasive Wheel Molder advised per Dr. Anthony okayfor the pt to hold as long as it has been 3 weeks since the pulmonary embolus. Nikki Coyne 02/20/2025, 9:20 AM * Duane Marcus RN - 02/17/2025 11:58 AM CDT See Anticoagulation telephone encounter 02/17/2025 for AC plan. Will remove this encounter from AC basket. Duane Marcus, ANGEILNE [facility]....02/17/2025 11:58 AM * Jonelle Pérez - 02/17/2025 10:23 AM CDT Pts daughter Love had called, stating pt needs a pre-op before the procedure on 03/06, and is wondering if the consult with Dr. Anthony on 03/02 would count as a pre-op, or does the pt need to see his PCP? Please advise and f/u with pts daughter. * Jenifer Ko RN - 02/16/2025 1:19 PM CDT Urgent Order was placed for a CT Guided Lung bx. ACC RN: Monitor for when/where this procedure is scheduled and then reach out for Bleed Risk. Will then need to send for periprocedure recommendations. * Rose Evangelista APRN, TECHNOLOGY PROJECT MANAGER - 02/16/2025 12:[address] guided biopsy orders placed. Will have anticoagulation team give recommendations on holding Eliquis prior to procedure. Thank you! Rose Evangelista APRN, ANTIQUE JEWELRY REPAIRER-BC * Nikki Coyne - 02/16/2025 8:[address] Foster, can you please place the order for CT guided lung biopsy for the pt? Thank you. Nikki Coyne 02/16/2025, 8:52 AM * Sandra Trevizo - 02/15/2025 4:26 PM CDT Patient's daughter has spoken with patient and he is agreeable to the CT guided lung biopsy and orders will need to be placed to schedule * Eric Dailey RN - 02/15/2025 9:15 AM CDT TC to Refugio @ [phone] who gives consent to speak to his daughterLove. TC to daughter Love @ [phone] to check in. We reviewed that the spiculated FDG avid HARRIET lug nodule is suspicious for a malignancy. Discussed that I spoke with IR and that a CT guided lung bx can be performed if desired. We did review that Refugio was recently diagnosed with acute bilateral PE's and was started on Eliquis. Love discussed Refugio's overall health which includes some significant dementia. Refugio has stated thatif this is cancer, so what and is not interested in pursuing treatment at this time. Love expressed interest in setting up a video/phone visit for her and Refugio to check in and discussgoals and whether Refugio is interested in pursuing biopsy or not in light of above. I let Love know that I think this is a great plan and that Dr. Foster can reach out to machine sign writer ifRon wants to pursue bx or oncology consult in the future. -Eric Dailey RN Navigato * Eric Dailey RN - 02/15/2025 7:59 AM CDT Reviewed 02/10/25 PET scan with IR who states that FDG avid HARRIET nodule is amenable to CT guided lung biopsy. Will reach out to pt/family and see if they'd like to set this up. -Eric Dailey RN Navigator * Stacia Zhang - 02/14/2025 2:56 PM CDT Pt scheduled for 03/02/[address] at [address] Anthony. * Jose Farrell MD - 02/14/2025 1:30 PM CDT Can set up urgent pulmonary appointment. Will also see if Eric Dailey can help with workup sooner. Concerning lesion is fairly central may help to discuss with interventional group if navigational bronchoscopy may be preferred over ct guided biopsy. * Nikki Coyne - 02/14/2025 9:45 AM CDT Urgent referral reason: Left lung nodule w positive PET scan 02-10-2025 Partial notes copied-- Recent testing showed: . That the left lung nodule may be cancerous and needs additional evaluation. HPI - Clay Mo is a 85 y.o. old male here with the following concern(s) today. His daughter, Love, is with him. On the date(s) noted above, Refugio was cared for at the location mentioned. . Presenting symptoms: short of breath, fatigue . Evaluation showed: bilateral PE, right leg DVT . Treatment given: anticoagulation, supportive care . Symptoms are better. Still some fatigue and shortness of breath, however. . Additional testing needed: Yes - PET to evaluated enlarging HARRIET lung nodule . Specialty follow-up needed: pending PET scan result [Pertinent imaging] [date]- Narrative & Impression EXAM: NM PET/CT SKULL BASE TO MID THIGH LOCATION: [facility] DATE: 02/10/2025 INDICATION: Solitary pulmonary nodule, left upper lobe COMPARISON: CTA of the chest dated 01/20/2025 TECHNIQUE: Serum glucose level 140 mg/dL. One hour post intravenous administration of FLUORINE - 18FLUORODEOXYGLUCOSE 10 millicurie, PET imaging was performed from the skull base to mid thigh, utilizing attenuation correction with concurrent axial CT and PET/CT image fusion. Dose reduction techniques were used. FINDINGS: Spiculated FDG avid nodule in the left upper lobe tethering the major fissure measuring 2.6 x 2.5 x 2.7 cm (Max SUV 5.8) suspicious for primary lung neoplasm without metastasis. The remaining FDG uptake is physiologic from the skull base to mid thigh. Mild paranasal sinus mucosal thickening. Mild carotid artery bifurcation calcification. 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 Right hepatic lobe cyst. Mild prostamegaly. Multilevel degenerative changes of the spine. 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 Dr. Farrell- Please review the urgent referral and advise on scheduling. Is any testing required prior to the appointment? Scheduling Recommendation (options below)- Urgent-have patient seen within 1 week. Semi-urgent- have patient be seen within 2-4 weeks. Okay to utilize urgent slot if no pulmonary consult slots are open. Non-urgent- have patient schedule next available pulmonary consult. * Berkley Pagan - 02/14/2025 8:21 AM CDT Consult/Referral What specialty/service are you requesting a referral for? pulm What is the reason for your requested referral? R91.1 (ICD-10-CM) - Lung nodule Within 1 Week (Urgent) Reason for visit? left lung nodule w positive PET scan 02-10-2025 documented in this encounter Plan of Treatment Upcoming Encounters Date Type Department Care Team (Late st Contact Info) Description 03/30/2026 2:00 PM CDT Appointment [facility] [place] [facility] [place]atology [address], [address] [place] [address] Karel Garcia MD [address] [place] [address] documented as of this encounter Results * (ABNORMAL) COMPLETE BLOOD COUNT-NO DIFF (04/20/2025 1:56 PM CDT) WBC 4.8 3.5 - 10.5 x10(9)/L 04/20/2025 2:03 PM CDT [facility] RBC 3.89(L) 4.32 - 5.72 x10(12)/L 04/20/2025 2:03 PM CDT [facility] Hemoglobin 12.3(L) 13.5 - 17.5 g/dL 04/20/2025 2:03 PM CDT [facility] HCT 37.9(L) 38.8 - 50.0 % 04/20/2025 2:03 PM CDT [facility] MCV 97.4 80.0 - 100.0 fL 04/20/2025 2:03 PM CDT [facility] MCH 31.6 27.6 - 33.3 pg 04/20/2025 2:03 PM CDT [facility] MCHC 32.5 31.5 - 35.2 g/dL 04/20/2025 2:03 PM CDT [facility] RDW 14.1 11.9 - 15.5 % 04/20/2025 2:03 PM CDT [facility] Platelets 186 150 - 450 x10(9)/L 04/20/2025 2:03 PM CDT [facility] Blood Venipuncture / Unknown 04/20/2025 1:56 PM CDT 04/20/2025 1:56 PM CDT us Uriel Foster DO LAB_1 Final Result Performing Organization Address City/[facility]/ZIP Co de Phone Number [facility] CLIA: [id number] [address] [place] [phone] * APTT (ACTIVATED PARTIAL THROMBOPLASTIN TIME (04/20/2025 1:56 PM CDT) APTT 28.1 22.5 - 36.5 Seconds 04/20/2025 7:53 PM CDT [facility] Blood Venipuncture / Unknown 04/20/2025 1:56 PM CDT 04/20/2025 1:56 PM CDT us Uriel Foster DO LAB_1 Final Result [facility] CLIA: [id number] [address] [place] [id number] [place] [address] * INR/PROTIME (04/20/2025 1:56 PM CDT) Protime 13.6 11.8 - 14.6 Seconds 04/20/2025 2:13 PM CDT [facility] INR 1.1 0.9 - 1.1 04/20/2025 2:13 PM CDT [facility] Blood Venipuncture / Unknown 04/20/2025 1:56 PM CDT 04/20/2025 1:56 PM CDT Narrative [facility] - 04/20/2025 2:13 PM CDT If you take an anticoagulant medicine called warfarin, your doctor or clinician may establish a normal range for you that is different from the baseline range shown. us Uriel Foster DO LAB_1 Final Result [facility] CLIA: [id number] [address] [place] [phone] * CT Bx Lung (03/06/2025 8:29 AM CDT) Anatomical Region Laterality Modality Lung, Chest, Guided Computed Miguel ography 03/06/2025 8:29 AM CDT Narrative 03/06/2025 8:51 AM CDT EXAM: 1. PERCUTANEOUS BIOPSY LEFT UPPER LOBE LUNG MASS 2. CT GUIDANCE 3. CONSCIOUS SEDATION LOCATION: [facility] DATE: 03/06/2025 INDICATION: Left upper lobe lung mass TECHNIQUE: Dose reduction techniques were used. PROCEDURE: Informed consent obtained. Site marked. Prior images reviewed. Required items made available. Patient identity confirmed verbally and with arm band. Patient reevaluated immediately before administering sedation. [place] protocol was followed. Time out performed. The site was prepped and draped in sterile fashion. 10 mL of 1% lidocaine was infused into the local soft tissues. Using standard technique and under direct CT guidance, a 18-gauge biopsy device was used to obtain 3 core biopsies. Tissue was submitted to the pathology department for evaluation. The patient tolerated the procedure well. No immediate complications. SEDATION: Versed 0.5 mg. Fentanyl 50 mcg. The procedure was performed with administration intravenous conscious sedation with appropriate preoperative, intraoperative, and postoperative evaluation. 30 minutes of supervised face to face conscious sedation time was provided by a radiology nurse under my direct supervision. IMPRESSION: 1. Successful CT-guided biopsy left upper lobe lung mass. Procedure Note Eric Lopez MD - 03/06/2025 EXAM: 1. PERCUTANEOUS BIOPSY LEFT UPPER LOBE LUNG MASS 2. CT GUIDANCE 3. CONSCIOUS SEDATION LOCATION: [facility] DATE: 03/06/2025 INDICATION: Left upper lobe lung mass TECHNIQUE: Dose reduction techniques were used. PROCEDURE: Informed consent obtained. Site marked. Prior images reviewed.Required items made available. Patient identity confirmed verbally andwith arm band. Patient reevaluated immediately before administeringsedation. [place] protocol was followed. Time out performed. The sitewas prepped and draped in sterile fashion. 10 mL of 1% lidocaine wasinfused into the local soft tissues. Using standard technique and underdirect CT guidance, a 18-gauge biopsy device was used to obtain 3 corebiopsies. Tissue was submitted to the pathology department forevaluation. The patient tolerated the procedure well. No immediate complications. SEDATION: Versed 0.5 mg. Fentanyl 50 mcg. The procedure was performed withadministration intravenous conscious sedation with appropriatepreoperative, intraoperative, and postoperative evaluation. 30 minutes of supervised face to face conscious sedation time was providedby a radiology nurse under my direct supervision. IMPRESSION: 1. Successful CT-guided biopsy left upper lobe lung mass. Uriel Foster DO RAD CT Final Result documented in this encounter Visit Diagnoses Diagnosis Lung nodule- Primary Solitary pulmonary nodule Acute deep vein thrombosis (DVT) of right popliteal vein (HRC) Monitoring for long-term anticoagulant use Encounter for long-term (current) use of anticoagulants Lung mass- Primary Swelling, mass, or lump in chest Lung nodule Solitary pulmonary nodule documented in this encounter Care Teams Ship Worker Relationship Specialty Start Date End Date Uriel Foster DO [address] [address] PCP - General Family Practice 07/08/23 documented as of this encounter
--- OUTSIDE RECORDS SUMMARY | 2025-07-31 11:53 | XMS_ITS | Encounter Summary ---
Author Organization [facility] Address [address] [place] [address] Care Team Providers Care Commercial Solar Sales Consultant Name Role Phone Cristian Uriel Josh PAK Primary Care Provider [phone] Encounter Details Date Type Department Care Team (Latest Contact Info) Description 07/07/1997 Orders Only Mark Zacarias MD [address] [place], [place] [id number] Social History Tobacco Use Types Packs/Day Years [...] 03/30/2026 2:00 PM CDT Appointment [facility] [place] - [facility]atology [facility] [address] [facility], [address] [place] [address] Karel Garcia MD [address] [place] [address] [place] [address] documented as of this encounter Visit Diagnoses Not on filedocumented in this encounter Additional Health Concerns Infection Onset Date Last Indicated Resolved Time R/O COVID19 08/21/2022 08/20/2022 08/21/2022 5:58 PM COMMERCIAL LINES ACCOUNT ASSISTANT R/O COVID19 07/09/2023 07/09/2023 07/09/2023 8:53 PM CDT R/O COVID19 12/29/2023 12/29/2023 12/29/2023 7:26 PM CDT documented as of this encounter Care Teams Commercial Solar Sales Consultant Relationship Specialty Start Date End Date Uriel Foster DO [address] [address] PCP - General Family Practice 07/08/23 documented as of this encounter
[2025-07-31 12:10] VITALS: BP 115/72; PULSE 52; RESP 18; TEMP 36.2; O2SAT 96; BMI 29.3
== END 2025-07-31 13:09 | disposition left against medical advice (07) ==
LOC: ED 13:07
PROVIDERS: Emergency Provider Family Medicine
DX: Z53.21 Procedure and treatment not carried out due to patient leaving prior to being seen by health care provider (principal)